=== PATIENT | male | born 1975 | race Caucasian/White ===

== ENCOUNTER 2017-01-03 13:00 | Emergency (ER) | payer OTHER ==
[~2017-01-03] VITALS: Ht 185.4 cm; Wt 100.0 kg
[2017-01-03] MEDS ORDERED: METO25 PO (15:07)
[2017-01-03] MEDS ORDERED: LISI-660 PO (15:08)
[2017-01-03] MEDS ORDERED: CLON.1 PO (15:08)
[2017-01-03] MEDS ORDERED: HYDR25TA PO (15:09)
[2017-01-03] MEDS ORDERED: FOLI1CAP2 PO (15:09)
[2017-01-03 16:06] LABS: GLUCOSE,POINT OF CARE 71 MG/DL (70-110)
[2017-01-03 16:12] LABS: CREATININE 14.15 mg/dL (0.60-1.30); POTASSIUM 5.8 mmol/L (3.5-5.1)
[2017-01-03 16:12] LABS: GLUCOSE,POINT OF CARE 71 MG/DL (70-110)
[2017-01-03] MEDS ORDERED: SODIUM POLYSTYRENE SULFONATE 15 GM/60 ML SUSPENSION BOTTLE PO ONE (16:30)
[2017-01-03 17:23] VITALS: BP 180/100
== END 2017-01-03 17:24 | disposition home or self-care (01) ==
LOC: EEVIPCON 13:07 → EMS 13:07
DX: I12.0 Hypertensive chronic kidney disease with stage 5 chronic kidney disease or end stage renal disease (principal); N18.6 End stage renal disease; N19 Unspecified kidney failure; R06.02 Shortness of breath; F11.90 Opioid use, unspecified, uncomplicated; F12.90 Cannabis use, unspecified, uncomplicated; F15.90 Other stimulant use, unspecified, uncomplicated; F19.90 Other psychoactive substance use, unspecified, uncomplicated; F17.210 Nicotine dependence, cigarettes, uncomplicated; Z02.89 Encounter for other administrative examinations; Z99.2 Dependence on renal dialysis
CPT/HCPCS: 82962; 93005; 99285